=== PATIENT | male | born 1990 | race Caucasian/White ===

== ENCOUNTER 2020-09-24 00:39 | Emergency (ER) | payer SELFPAY ==
[~2020-09-24] VITALS: Ht 172.7 cm; Wt 84.8 kg
--- NOTE | 2020-09-24 00:46 | NUR ---
pt bibRA c/o left leg pain s/p falling off a skateboard. Pt [id number] breathing evenly and unlabored. Pt states "i push off with my right leg and all my weight is on my left leg. i fell forward with my backpack on" Upon assessment, pt unable to lift left leg. Per EMS, pt unable to ambulate on scene. pt changed into gown, placed on monitor and pox. pt given blanket and call light within reach.
[2020-09-24] MEDS ORDERED: IBUPROFEN 400 MG TABLET ONE (00:56)
--- NOTE | 2020-09-24 00:57 | NUR ---
xray at bedside
[2020-09-24] MEDS: IBUPROFEN 400 MG TABLET PO ONE (01:00)
--- NOTE | 2020-09-24 01:32 | NUR ---
Patient discharged to home in stable condition. Written and verbal after care instructions given. Patient verbalizes understanding of instruction. Pt ambulatory with a steady gait
[2020-09-24 01:53] VITALS: BP 120/69
== END 2020-09-24 01:32 | disposition home or self-care (01) ==
LOC: ER 00:41
DX: S70.02XA Contusion of left hip, initial encounter (principal); V00.131A Fall from skateboard, initial encounter; Y93.51 Activity, roller skating (inline) and skateboarding; Y92.89 Other specified places as the place of occurrence of the external cause; Y99.8 Other external cause status
CPT/HCPCS: 73502